=== PATIENT | female | born 1945 ===

== ENCOUNTER 2020-11-07 11:41 | Emergency (ER) | payer MEDICARE, SELFPAY | END 2020-11-07 15:24 | disposition left against medical advice (07) | PROVIDERS: Emergency Provider Emergency Medicine; PCP Internal Medicine | DX: R22.31 Localized swelling, mass and lump, right upper limb (principal) ==

== ENCOUNTER 2020-12-30 10:27 | Outpatient (REF) | payer MEDICARE, SELFPAY ==
--- NOTE | ~2020-12-30 | MM_ITS ---
EXAMINATION: MM SCREENING DIGITAL BREAST TOMOSYNTHESIS, BILATERAL CLINICAL INFORMATION: Screening. Asymptomatic. The lifetime risk of breast cancer based on the Tyrer-Cuzick Model is 3%. COMPARISON: Mammography: 05/15/2019, 03/10/2018, 02/01/2017, 01/31/2016, 12/06/2014 TECHNIQUE: Digital breast tomosynthesis is performed in both the craniocaudal and mediolateral oblique views along with computer-aided detection (CAD). Synthesized 2D images are generated from the tomosynthesis. FINDINGS: There are scattered areas of fibroglandular density (ACR BI-RADS breast composition Category b). Parenchymal pattern is similar to prior studies. There are minor shifting fibroglandular densities from year to year based on positioning. There is no developing density or interval mass or architectural abnormality. There are no abnormal calcifications. Deodorant artifact is suggested high right axilla on MLO view. The axilla and skin contours are otherwise unremarkable. No significant changes. MM/MM tomosynthesis screening BI IMPRESSION: No mammographic evidence of malignancy. ASSESSMENT: BI-RADS 2: Benign RECOMMENDATION: Routine annual mammography screening. This patient's information was entered into a reminder system with a target due date for their next mammogram.
== END 2020-12-30 10:28 | disposition home or self-care (01) ==
LOC: HO.MAMMO 10:27
PROVIDERS: PCP Family Medicine; Visit Provider Family Medicine
DX: Z12.31 Encounter for screening mammogram for malignant neoplasm of breast (principal)
CPT/HCPCS: 77063; 77067

== ENCOUNTER 2021-03-14 10:49 | Outpatient (REF) | payer MEDICARE, MEDICAID, SELFPAY ==
[2021-03-14 12:48] LABS: MANUAL DIFF FLAG NO
[2021-03-14 13:10] LABS: Basophils Percent Auto 0.6 % (0-2); Eosinophils Absolute Auto 0.1 X10*3/uL (0.0-0.4); Eosinophils Percent Auto 1.3 % (0-4); Hematocrit 41.6 % (37.0-47.0); Imm Gran Abs Auto 0.01 X10*3/uL (0.00-0.03); Imm Gran Pct Auto 0.2 % (0.0-0.4); Lymphocytes Percent Auto 37.8 % (20-40); Mean Corpuscular HGB Conc 33.7 g/dl (31.0-35.0); Mean Corpuscular Hemoglobin 31.9 pg (27.0-33.0); Mean Corpuscular Volume 94.8 fL (80.0-98.0); Monocytes Absolute Auto 0.3 X10*3/uL (0.1-1.2); Monocytes Percent Auto 6.5 % (2-11); Neutrophils Absolute Auto 2.8 x10*3/uL (2.0-8.3); Neutrophils Percent Auto 53.6 % (45-73); Platelet Count 228 X10*3/uL (160-400); Red Blood Count 4.39 X10*6/uL (4.20-5.50); Red Cell Distribution Width 13.7 % (11.0-16.0); White Blood Count 5.2 X10*3/uL (4.8-10.8)
[2021-03-14 13:32] LABS: Alanine Aminotransferase 11 U/L (0-31); Albumin Level 4.4 g/dL (3.5-5.0); Alkaline Phosphatase 66 U/L (39-117); Anion Gap 12 (12-20); Aspartate Amino Transferase 20 U/L (5-31); Bilirubin Total 0.4 mg/dL (0.0-1.0); Blood Urea Nitrogen 14 mg/dL (9-16); Calcium 9.8 mg/dL (8.4-10.2); Carbon Dioxide 26 mmol/L (22-29); Chloride 106 mmol/L (96-108); Estimated Glomerular Filt Rate 59; Glucose Random 93 mg/dL (60-115); Potassium 4.3 mmol/L (3.3-5.1); Sodium 140 mmol/L (135-145); Total Protein 8.1 g/dL (6.5-8.0)
== END 2021-03-14 10:50 | disposition home or self-care (01) ==
LOC: HO.LAB 10:49
PROVIDERS: PCP Family Medicine; Referring Provider Family Medicine; Visit Provider Nurse Practitioner
DX: Z01.818 Encounter for other preprocedural examination (principal); I10 Essential (primary) hypertension
CPT/HCPCS: 36415; 80053; 85025; 99202

== ENCOUNTER 2021-04-07 10:46 | Outpatient (REF) | payer MEDICARE, MEDICAID, SELFPAY ==
[2021-04-07 12:06] LABS: COVID-19 Test Negative (Negative); IDNOW Serial# 16C4AD1C
== END 2021-04-07 10:47 | disposition home or self-care (01) ==
LOC: HO.LAB 10:46
PROVIDERS: Visit Provider Internal Medicine
DX: Z20.822 Contact with and (suspected) exposure to COVID-19 (principal)
CPT/HCPCS: 36415; 87635; C9803

== ENCOUNTER 2021-04-28 08:19 | Day surgery (SDC) | payer MEDICARE, MEDICAID, SELFPAY ==
--- NOTE | 2021-04-27 15:36 | HO.ANESPROP2 ---
Documented by User: Delilah Romo NP 04/27/21 15:36 HPI - Anesthesia Eval Consult details Narrative: 76yo F for Colonoscopy [facility] Active Problems Active Problems: All Active Problems (Updated 04/19/21 @ 11:24 by Stella Garcia RN) Colon cancer screening (Acute) HTN (hypertension), benign (Acute) Past Medical History Medical History (Updated 04/19/21 @ 11:24 by Stella Garcia RN) Depression Elevated cholesterol HTN (hypertension) Surgical History Surgical History (Updated 04/19/21 @ 11:23 by Stella Garcia RN) History of colonoscopy with polypectomy Social History Social History Patient Tobacco Use Status: Never used Tobacco Use of substances other than those prescribed or required for medical reasons: No Have you been hit, kicked, punched, or otherwise hurt by someone within the past year? If so, by whom?: No Are you DNR?: No Advance Directives: No Advance Directives Information Provided: No Advance Directives on File: No Meds Allergies Allergy/AdvReac Type Severity Reaction Status Date / Time No Known Allergies Allergy Verified 03/14/21 11:42 Home Medications Medication Instructions Recorded Confirmed Last Taken Type atenolol 100 mg tablet 100 mg PO DAILY 03/14/21 Unknown History cholecalciferol (vitamin D3) 25 25 mcg PO DAILY 03/14/21 Unknown History mcg (1,000 unit) capsule (Vitamin D3) clindamycin HCl 300 mg capsule 300 mg PO Q8H 03/14/21 Unknown History loratadine 10 mg tablet 10 mg PO DAILY 03/14/21 Unknown History omega 3-ecg-vyo-fish oil 300 1 cap PO DAILY 03/14/21 Unknown History mg-1,000 mg capsule (Fish Oil) Exam Exam Date and Time: April 27, 2021 1536 Height,Weight and Vital Signs: Height 5 ft 3 in Assessment and Plan Assessment Anesthesia Assessment: Chart Reviewed Documented by User: Juan Michelle MD 04/28/21 09:45 [facility] Past Medical History Medical History (Updated 04/19/21 @ 11:24 by Stella Garcia RN) Depression Elevated cholesterol HTN (hypertension) Family History Family history of problems with anesthesia: No Surgical History Surgical History (Updated 04/19/21 @ 11:23 by Stella Garcia RN) History of colonoscopy with polypectomy History of Problems with Anesthesia: No Social History Social History Patient Tobacco Use Status: Never used Tobacco Use of substances other than those prescribed or required for medical reasons: No Have you been hit, kicked, punched, or otherwise hurt by someone within the past year? If so, by whom?: No Are you DNR?: No Advance Directives: No Advance Directives Information Provided: No Advance Directives on File: No Meds Allergies Allergy/AdvReac Type Severity Reaction Status Date / Time No Known Allergies Allergy Verified 03/14/21 11:42 Home Medications Medication Instructions Recorded Confirmed Last Taken Type atenolol 100 mg tablet 100 mg PO DAILY 03/14/21 Unknown History cholecalciferol (vitamin D3) 25 25 mcg PO DAILY 03/14/21 Unknown History mcg (1,000 unit) capsule (Vitamin D3) clindamycin HCl 300 mg capsule 300 mg PO Q8H 03/14/21 Unknown History loratadine 10 mg tablet 10 mg PO DAILY 03/14/21 Unknown History omega 5-gwz-dna-fish oil 300 1 cap PO DAILY 03/14/21 Unknown History mg-1,000 mg capsule (Fish Oil) Exam Airway Mallampati Class: II TM Dist: >3cm Neck ROM: Full Loose/Missing/Broken Teeth: Yes (all implants as per patient) Heart: [id number] Lungs: cta b/l Assessment and Plan Assessment Anesthesia Assessment: Anesthesia Plan Discussed Final Anesthetic Review Family History of Problems with Anesthesia: No History of Problems with Anesthesia: No NPO: Yes ASA Class: II Final Preanesthetic Review: No Changes in Pt Med Stat, Meds/Allgs Chart Reviewed, Consent Obtained/Reviewed and Anes Risks/Benef Reviewed Patient Risk: Intermediate Procedure Risk: Low Assessment/Block/Sedation in SS: Assess/Block/Sedation-SS Anesthetic Plan Anesthetic Plan: MAC: and Agree w/ Assess. and Plan Disposition: Standard PACU
[2021-04-28 09:06] VITALS: BP 187/80; PULSE 61; RESP 16; TEMP 36.5; O2SAT 96
[2021-04-28 09:07] VITALS: BMI 23.9
[2021-04-28] MEDS: Lactated Ringers 1,000 ML 100 ML IVCONT (09:26)
--- NOTE | 2021-04-28 09:29 | MHC.SHP ---
Pre-Procedural Eval Section A Date of Service: 04/28/21 The patient is an INPATIENT: No The History & Physical has been completed within 30 days and I have reviewed it.: No Section B Chief Complaint: Screening Details of Present Illness: colon cancer screening Relevant Family History (Specify if Yes): Yes Relevant Social History: None Present Medications: see Short Stay Collaborative assessment Medical History: Significant History ( hypertension, elevated cholesterol, depression) History of Previous Operations: Relevant previous surgery/procedure and date(s) (History of colonoscopy with polypectomy) Allergies: Allergies Allergy/AdvReac Type Severity Reaction Status Date / Time No Known Allergies Allergy Verified 03/14/21 11:42 Review of Systems Sugical H&P ROS: Negative: Constitution, Cardiovascular, Respiratory and Gastrointestinal Exam Surgical H&P Exam: Normal: Heart, Normal: Lungs, Normal: Extremities and Normal: Abdomen Plan Diagnosis/Plan: Unchanged I have reviewed the history and physical and performed a pertinent physical examination on my patient. No changes have occurred unless specified.
--- NOTE | 2021-04-28 09:38 | W.PM.OPN ---
Operative Note Operative Note Date of Service: 04/28/21 Narrative: Pre-op diagnosis:??colon cancer screening Post-op diagnosis:?other (Colon polyps, diverticulosis, hemorrhoids) Procedure:? COLONOSCOPY TILL CECUM WITH BIOPSIES Consent: Indications for the procedure and potential complications of bleeding, perforation, reaction to medications and missed diagnosis were discussed with the patient and informed consent was obtained. Instrument: Olympus PCF H 190 L variable stiffness pediatric colonoscope Monitoring: Vital signs and clinical assessment, intermittent blood pressure monitoring, continuous EKG monitoring, Pulse oximetry and Carbon Dioxide monitoring were done throughout the procedure. Colon withdrawl time was 13 minutes. Procedure: The patient was placed in the left lateral decubitis position and pre-procedure medications were administered. After a digital rectal examination of the ano-rectum, the video colonoscope was inserted into the rectum and advanced through the colon to the cecum. The colonoscope was slowly withdrawn in a retrograde panoramic fashion and the colon mucosa was carefully examined including a retroflexed view of the rectum. Findings and interventions are described below. Procedure Difficulty: Without difficulty Findings: Terminal Ileum: Not evaluated Cecum:? Two 5-7 mm sessile polyps removed with a cold bx Ascending Colon:? Normal Transverse Colon:? Normal Descending Colon:? Moderate diverticulosis Sigmoid Colon:? Moderate diverticulosis Rectum:? Normal Ano-rectum:? Moderate internal hemorrhoids and perianal skin tags Colon preparation: Excellent ? Impression and Post Procedure Diagnosis: Colonoscopy Findings: Two small polyps removed Moderate diverticulosis seen in the left colon Moderate hemorrhoids on retroflexed exam. Plan: Await pathology results Patient has an appointment on 05/19/20 in the [facility] with? Pia Lindquist NP . Repeat Colonoscopy interval based on path results - in 5 years if polyps are adenomatous and can discontinue colon cancer screening if polyps are hyperplastic. Above findings were reviewed with the patient and colon polyps and diverticulosis handouts were given in the discharge area Surgeon:?Cornelia Delarosa MD Anesthesia:?MAC (Minna Malone CRNA) Was an Channel Worker used for this Procedure?:?Yes Channel Worker:?Tessy Becker Estimated blood loss (mL):?0 Pathology:?other (A- Cecal polyps) Condition:?stable Disposition:?PACU
[2021-04-28 10:52] VITALS: BP 126/63; PULSE 74; RESP 18; TEMP 36.4; O2SAT 100
[2021-04-28 11:04] VITALS: BP 131/72; PULSE 68; RESP 18; TEMP 37.2; O2SAT 97
== END 2021-04-28 12:26 | disposition home or self-care (01) ==
PROVIDERS: PCP Family Medicine; Visit Provider Internal Medicine Gastroenterology
PROC: 0DJD8ZZ Inspection of Lower Intestinal Tract, Via Natural or Artificial Opening Endoscopic (ICD-10-PCS; CPT 45378; principal; 2021-04-28 10:10)
DX: Z12.11 Encounter for screening for malignant neoplasm of colon (principal); K57.30 Diverticulosis of large intestine without perforation or abscess without bleeding; K64.8 Other hemorrhoids; K64.4 Residual hemorrhoidal skin tags; I10 Essential (primary) hypertension; E78.00 Pure hypercholesterolemia, unspecified; J30.9 Allergic rhinitis, unspecified; Z79.899 Other long term (current) drug therapy
CPT/HCPCS: 45380; 88305

== ENCOUNTER → 2021-05-19 08:45 | Outpatient (BNVA) | payer MEDICARE, MEDICAID, SELFPAY | PROVIDERS: PCP Family Medicine; Referring Provider Family Medicine; Visit Provider Nurse Practitioner | DX: D12.6 Benign neoplasm of colon, unspecified (principal); Z98.890 Other specified postprocedural states | CPT/HCPCS: 99212 ==

== ENCOUNTER 2021-09-05 09:28 | Outpatient (REF) | payer MEDICARE, MEDICAID, SELFPAY ==
--- NOTE | ~2021-09-05 | XR_ITS ---
EXAMINATION: XR SHOULDER, RIGHT CLINICAL INFORMATION: Pain COMPARISON: None TECHNIQUE: AP external rotation, Grashey, scapular Y, and axillary views of the right shoulder. FINDINGS: Bone alignment is normal. No fracture or dislocation is seen. The glenohumeral joint is normal. There is arthritis at the acromioclavicular joint. Soft tissues are normal. XR/XR shoulder RT min 2V IMPRESSION: Arthritis at the acromioclavicular joint.
--- NOTE | ~2021-09-05 | MM_ITS ---
EXAMINATION: BONE DENSITOMETRY CLINICAL INDICATION: Menopause. COMPARISON: Previous BD dated 04/28/2015 and baseline BD dated 02/27/2008. TECHNIQUE: Using a Perosphere DXA System (software version: 13.1) manufactured by [employer], dual-energy x-ray absorptiometry was performed of the lumbar spine and left hip. The images are of good technical quality. Summary results are attached. FINDINGS: AP SPINE L1-L4: Current: BMD 0.849 g/cm2, Z-score -0.8, T-score -2.8, osteoporosis, 3.7% decrease from previous, 2.1% decrease from baseline (<5% change is not significant). Prior: BMD 0.882 g/cm2. Baseline: BMD 0.867 g/cm2. LEFT FEMUR, NECK: Current: BMD 0.687 g/cm2, Z-score -0.4, T-score -2.5, osteoporosis. Prior: BMD 0.686 g/cm2. Baseline: BMD 0.679 g/cm2. LEFT FEMUR, TOTAL: Current: BMD 0.829 g/cm2, Z-score 0.6, T-score -1.4, osteopenia, 3.1% increase from previous, 4.4% decrease from baseline (<5% change is not significant). Prior: BMD 0.804 g/cm2. Baseline: BMD 0.867 g/cm2. IDENTIFIED RISK FACTORS: Menopause. HISTORY OF FRACTURE: None listed. MEDICATIONS: Calcium supplements or multivitamin, vitamin D. MM/XR DEXA axial skeleton IMPRESSION: 1. DIAGNOSIS: Osteoporosis based on the lowest T-score value of -2.8 in the lumbar spine applying World Health Organization criteria. 2. 10-YEAR FRACTURE RISK PREDICTION, FRAX: According to the guidelines, FRAX calculation should only be performed on patients in the osteopenia bone density category. Therefore, FRAX was not performed on this patient. 3. Treatment Recommendations: NOF guidelines recommend consideration for treatment in postmenopausal women and men age 50 and older presenting with the following: -A hip or vertebral (clinical or morphometric) fracture. -T-score less than or equal to -2.5 at the femoral neck or spine after appropriate evaluation to exclude secondary causes. -Low bone mass at the hip or spine and a 10-year fracture probability by FRAX of greater than or equal to 3% for hip fracture or greater than or equal to 20% for major osteoporotic fracture based on the [place] adapted WHO algorithm. 4. Other Recommendations: All treatment decisions require clinical judgment and consideration of individual patient factors, including patient preferences, comorbidities, previous drug use, risk factors not captured in the FRAX model (e.g. frailty, falls, vitamin D deficiency, increased bone turnover, interval significant decline in bone density) and possible under or overestimation of fracture risk by FRAX. Additional medical evaluation for secondary cause of low bone mineral density may be appropriate. FUTURE SCAN RECOMMENDATION: People with diagnosed cases of osteoporosis or at high risk for fracture should have regular bone mineral density tests. For patients eligible for Medicare, routine testing is allowed once every 2 years. The testing frequency can be increased to one year for patients who have rapidly progressing disease, those who are receiving or discontinuing medical therapy to restore bone mass, or have additional risk factors.
== END 2021-09-05 09:29 | disposition home or self-care (01) ==
LOC: HO.MAMMO 09:28
PROVIDERS: PCP Family Medicine; Visit Provider Family Medicine
DX: Z13.820 Encounter for screening for osteoporosis (principal); M25.511 Pain in right shoulder; Z78.0 Asymptomatic menopausal state; M81.0 Age-related osteoporosis without current pathological fracture
CPT/HCPCS: 73030; 77080

== ENCOUNTER 2022-08-29 08:23 | Inpatient (IN) | payer OTHER, SELFPAY ==
[2022-08-29] VITALS (8 sets, daily range): BP systolic 140–212; BP diastolic 55–143; PULSE 63–80; RESP 15–23; TEMP 36.6–37.2; O2SAT 92–99; BMI 25.3; BMI 25.2
--- NOTE | ~2022-08-29 | CT_ITS ---
EXAMINATION: CT ABDOMEN AND PELVIS WITH CONTRAST CLINICAL INFORMATION: Right upper quadrant pain with elevated lyric, alk phos, lipase r/o lyric obstruction, COMPARISON: None available. TECHNIQUE: Multidetector volumetric images were obtained from the superior aspect of the liver through the pubic symphysis following administration 85 mL of Omnipaque 350 intravenous contrast. Sagittal and coronal reformatted images were obtained on the technologist's workstation. Oral contrast: No This CT examination was performed using dose optimization techniques as appropriate, variously including the following: *Automated exposure control *Adjustment of mA and/or kV according to patient size (this includes techniques or standardized protocols for targeted exams where dose is matched to indication/reason for exam; i.e. extremities or head) *Use of iterative reconstruction technique DLP: 678 mGy-cm FINDINGS: LUNG BASES: The visualized lung bases are unremarkable. LIVER, GALLBLADDER, AND BILIARY TREE: The liver is normal in size, shape, and attenuation. No focal hepatic lesion or biliary ductal dilatation is present. The gallbladder is hydropic, markedly distended with dependent layering calcified gallstones the largest measuring 2.3 cm. PANCREAS: Unremarkable. SPLEEN: Unremarkable. ADRENAL GLANDS: Mild thickening of the left adrenal gland. The right adrenal gland appears normal. KIDNEYS AND URETERS: The kidneys are normal in size, shape, and attenuation. Bilateral benign Bosniak class I renal cysts are present No hydronephrosis, hydroureter, or calculi seen. No perinephric stranding. BLADDER: Unremarkable. GASTROINTESTINAL TRACT: Extensive colonic diverticular changes are seen predominantly in the left colon. There is one area in the mid descending colon where there is thickening of the anterior pararenal fascia and lateral conal fascia. There is some inflammatory change seen beneath the third portion of the duodenum in the anterior fascia as well. No discrete fluid collection is seen. Differential diagnosis for these findings would include diverticulitis as well as pancreatitis as the pancreatic tail is adjacent to this as well. The small bowel and right-sided large bowel are unremarkable. The appendix is unremarkable. ABDOMINAL WALL: No significant hernia is appreciated. LYMPH NODES: No retroperitoneal lymphadenopathy. VASCULAR: Unremarkable. PELVIC VISCERA: The uterus and adnexa are unremarkable aside from the presence of a calcified fibroid on the right. OSSEOUS STRUCTURES: Degenerative changes are present predominantly at L4-L5 and L5-S1. CT/CT abdomen pelvis w IV con IMPRESSION: 1. Extensive colonic diverticular changes with one area in the mid descending colon with some adjacent inflammatory change in the anterior pararenal fascia and lateral conal fascia. Differential diagnosis would include diverticulitis as well as pancreatitis as the pancreatic tail is adjacent to this as well. Please correlate with clinical history and laboratory values. 2. Hydropic gallbladder with cholelithiasis. No definite evidence of cholecystitis. 3. Other incidental findings as described above. Fleischner guidelines were followed.
--- NOTE | 2022-08-29 09:01 | ECG_ITS ---
Test Reason : ABDOMINAL PAIN Blood Pressure : / mmHG Vent. Rate : 067 BPM Atrial Rate : 067 BPM P-R Int : 160 ms QRS Dur : 072 ms QT Int : 410 ms P-R-T Axes : 058 018 034 degrees QTc Int : 433 ms Normal sinus rhythm Normal ECG No previous ECGs available Referred By: Lala Becerril Electronically Signed By:JORGE ALBERTO WARD
[2022-08-29 09:14] LABS: MANUAL DIFF FLAG NO
[2022-08-29 09:16] LABS: Basophils Percent Auto 0.2 % (0-2); Eosinophils Absolute Auto 0.1 X10*3/uL (0.0-0.4); Eosinophils Percent Auto 0.5 % (0-4); Hematocrit 39.3 % (37.0-47.0); Hemoglobin 13.1 g/dl (12.0-16.0); Imm Gran Abs Auto 0.04 X10*3/uL (0.00-0.03); Imm Gran Pct Auto 0.4 % (0.0-0.4); Lymphocytes Absolute Auto 1.2 X10*3/uL (1.2-4.9); Lymphocytes Percent Auto 11.8 % (20-40); Mean Corpuscular HGB Conc 33.3 g/dl (31.0-35.0); Mean Corpuscular Hemoglobin 31.6 pg (27.0-33.0); Mean Corpuscular Volume 94.7 fL (80.0-98.0); Mean Platelet Volume 10.6 fL (9.4-12.3); Monocytes Absolute Auto 0.3 X10*3/uL (0.1-1.2); Monocytes Percent Auto 2.9 % (2-11); Neutrophils Absolute Auto 8.8 x10*3/uL (2.0-8.3); Neutrophils Percent Auto 84.2 % (45-73); Platelet Count 249 X10*3/uL (160-400); Red Blood Count 4.15 X10*6/uL (4.20-5.50); Red Cell Distribution Width 14.4 % (11.0-16.0); White Blood Count 10.4 X10*3/uL (4.8-10.8)
[2022-08-29 09:21] LABS: Appearance Urine Clear; Color Urine Yellow; Glucose Urine UA Negative (Negative); Leukocyte Esterase Urine Negative (Negative); Nitrite Urine Negative (Negative); Specific Gravity - Urine <= 1.005 (1.005-1.025); Urine Blood Negative (Negative); Urine Ketones Negative (Negative); Urine Protein Negative (Neg-Trace)
[2022-08-29 09:25] LABS: INTERNATIONAL NORM RATIO 0.9 (0.9-1.1)
[2022-08-29 09:27] LABS: Partial Thromboplastin Time 29.6 SEC (26.0-36.4)
[2022-08-29 09:31] LABS: Alanine Aminotransferase 179 U/L (0-31); Albumin Level 4.4 g/dL (3.5-5.0); Alkaline Phosphatase 316 U/L (39-117); Anion Gap 11 (12-20); Aspartate Amino Transferase 235 U/L (5-31); Bilirubin Total 2.9 mg/dL (0.0-1.0); Blood Urea Nitrogen 17 mg/dL (9-16); Calcium 10.1 mg/dL (8.4-10.2); Carbon Dioxide 28 mmol/L (22-29); Chloride 106 mmol/L (96-108); Creatinine Clr Calc Pharmacy 41.2; Estimated Glomerular Filt Rate 58; Glucose Random 108 mg/dL (60-115); Magnesium 1.9 mg/dL (1.6-2.6); Sodium 140 mmol/L (135-145); Total Protein 8.2 g/dL (6.5-8.0)
[2022-08-29 09:52] LABS: Troponin-I High Sensitivity < 2.7 ng/L (<3.5-17.0)
--- NOTE | 2022-08-29 10:03 | ED.ABDPAIN ---
HPI - Abdominal Pain General Chief Complaint: Abdominal Pain Stated Complaint: Stomach Pain Time Seen by Provider: 08/29/22 09:39 Source: patient Mode of arrival: ambulatory Limitations: no limitations History of Present Illness HPI narrative: 77-year-old female who presents emergency department for evaluation of abdominal pain x1 week. The patient states that the pain is bed constant but waxing and waning intensity. The pain is gotten worse over the past 2 days the point where she cannot eat secondary to her pain. She points to her right upper quadrant when asked to localize the pain. The pain is a sharp pain which does radiate to her back. Patient denied nausea vomiting or diarrhea but states she has lost her appetite and food does make the pain worse. She denied fever or chills. She denied frequency, urgency or dysuria. Past medical history significant for 36 years ago but no other surgeries. She does have a history of hypertension and she states that her doctor increased her medications approximately 1 month prior. Related Data Home Medications Medication Instructions Recorded Confirmed atenolol 100 mg tablet 100 mg PO DAILY 03/14/21 cholecalciferol (vitamin D3) 25 25 mcg PO DAILY 03/14/21 mcg (1,000 unit) capsule (Vitamin D3) clindamycin HCl 300 mg capsule 300 mg PO Q8H 03/14/21 loratadine 10 mg tablet 10 mg PO DAILY 03/14/21 omega 3-qhp-htn-fish oil 300 1 cap PO DAILY 03/14/21 mg-1,000 mg capsule (Fish Oil) Allergies Allergy/AdvReac Type Severity Reaction Status Date / Time No Known Allergies Allergy Verified 08/29/22 08:52 Review of Systems Review of Systems Yes all other systems are reviewed and are negative [facility] Past Medical History [facility] Narrative: Social history: She denies tobacco, alcohol and drug use. Medical History Depression Elevated cholesterol HTN (hypertension) Surgical History History of colonoscopy with polypectomy Social History Social History Patient Tobacco Use Status: Never used Tobacco Smoked in Last 30 Days: No Use of substances other than those prescribed or required for medical reasons: No Advance Directives: No Advance Directives Information Provided: Yes Physical Exam ED Vital Signs: Vital Signs - 24 hr 08/29/22 08:44 08/29/22 10:12 08/29/22 12:53 Temperature 97.8 F 98.5 F Pulse Rate 80 69 67 Respiratory Rate 16 15 17 Blood Pressure 212/143 H 151/76 H 140/73 H Pulse Oximetry 97 96 99 Oxygen Delivery Method Room Air Room Air Room Air 08/29/22 13:21 08/29/22 15:15 Temperature Pulse Rate 73 Respiratory Rate 23 H 18 Blood Pressure 174/74 H 175/86 H Pulse Oximetry 95 95 Oxygen Delivery Method Room Air Room Air BMI result Body Mass Index 25.3 Const Other: Awake, alert, female patient, very pleasant cooperative in no distress, answers all questions appropriately HENMN Head: Yes normal to inspection, Yes normocephalic and Yes atraumatic Ears: external ears normal General nose exam: Normal external nose present Face and sinus: Yes normal facial exam Mouth: Normal oral and palatal mucosa present Throat: Yes posterior oropharynx normal Eyes General: appearance normal, both eyes and all related structures Pupils: Equal, round and reactive pupils present Neck Neck: Yes normal visual inspection, Yes no lymphadenopathy, Yes trachea midline and Yes supple Chest Chest palpation & inspection: normal inspection of the chest and normal palpation of entire chest wall Resp Effort & Inspection: normal respiratory effort and able to speak in complete sentences Auscultation: clear to auscultation bilaterally Cardio Rate: regular rate Rhythm: regular rhythm Heart sounds: S1 normal heart sound present, S2 normal heart sound present and no murmurs GI Inspection: Yes normal to inspection Palpation (GI): Soft to palpation, Tenderness to palpation present (GI) in the epigastrum (Mild) and in the RUQ (Moderate) and no guarding Auscultation: normal bowel sounds General: Yes no CVA tenderness Back/Spine/Pelvis Back: no CVA tenderness Skin General skin exam: no rashes or lesions noted Neuro Cranial nerves: Yes CN's II-XII intact bilaterally and Yes Equal, round and reactive pupils present Cognition (Neuro): normal cognition Motor exam (neuro): 5/5 motor strength present throughout Extrem General: Yes normal to inspection Psych Appearance: grossly normal Speech and movement: Normal speech and movement present Affect: normal affect Attitude: cooperative Thought process: Normal thought process present Thought content: Normal thought content present Medical Decision Making Medical Decision Making [facility] Narrative: 77-year-old female with history of hypertension, depression, who presents emergency department for evaluation of 1 week of constant right upper quadrant pain which radiates to her back. Patient's vital signs did reveal an elevated blood pressure of 212/143 otherwise were unremarkable. Patient's physical examination did reveal right upper quadrant tenderness and epigastric tenderness. I ordered a CBC, CMP, magnesium, troponin, PT/INR, PTT, lipase, total and direct bilirubin. CT scan of the abdomen pelvis with IV contrast will also be obtained. I ordered normal saline x1 L, Zofran 4 mg IV for her nausea and Toradol 15 mg IV for her pain. 1015: My interpretation patient's laboratory evaluation is as follows: CBC was normal. BUN elevated 75. AST and ALT were elevated 235 and 179. Alk-phos was elevated 316. Total bilirubin elevated 2.9. Troponin was below detectable limits. Urinalysis was negative. Patient's elevated LFTs are concerning for biliary obstructive process. 1736: CT scan of the patient's abdomen pelvis with IV contrast did reveal distended the largest markedly distended with dependent layering calcified gallstones the largest measuring 2.3 cm inflammatory changes around the pancreatic tail consistent with pancreatitis. I did discuss over tiger text the patient's presentation findings with the covering general surgeon, Dr. Robledo 1804: Patient was accepted by the hospitalist, Dr. Lynn Differential Diagnosis Differential diagnosis includes but is not limited to gastritis, GERD, cholecystitis, choledocholithiasis, viral syndrome Admission/Observation Consideration of admission/observation: Escalation of care including admission/observation considered Consult Healthcare Provider Management of the patient was discussed with: Hospitalist and Allergy And Immunology Specialist (Dr. Robledo) Lab Data [facility] Lab Attestation statement: I reviewed the patient's lab results. 08/29/22 09:07 08/29/22 09:07 Labs: Lab Results 08/29/22 08/29/22 08/29/22 Range/Units 09:07 09:07 09:07 WBC 10.4 (4.8-10.8) X10*3/uL RBC 4.15 L (4.20-5.50) X10*6/uL Hgb 13.1 (12.0-16.0) g/dl Hct 39.3 (37.0-47.0) % MCV 94.7 (80.0-98.0) fL MCH 31.6 (27.0-33.0) pg MCHC 33.3 (31.0-35.0) g/dl RDW 14.4 (11.0-16.0) % Plt Count 249 (160-400) X10*3/uL MPV 10.6 (9.4-12.3) fL Immature Gran % (Auto) 0.4 (0.0-0.4) % Neut % (Auto) 84.2 H (45-73) % Lymph % (Auto) 11.8 L (20-40) % [place] % (Auto) 2.9 (2-11) % Eos % (Auto) 0.5 (0-4) % Baso % (Auto) 0.2 (0-2) % Lymph # (Auto) 1.2 (1.2-4.9) X10*3/uL [place] # (Auto) 0.3 (0.1-1.2) X10*3/uL Eos # (Auto) 0.1 (0.0-0.4) X10*3/uL Baso # (Auto) 0.0 (0.0-0.2) X10*3/uL Abs Immat Gran (auto) 0.04 H (0.00-0.03) X10*3/uL Absolute Neuts (auto) 8.8 H (2.0-8.3) x10*3/uL Absolute Nucleated RBC 0.000 (0.0-0.012) X10*3/uL Nucleated RBC % (auto) 0.0 (0.0-0.2) /100WBC PT 10.0 (10.0-13.1) SEC INR 0.9 (0.9-1.1) APTT 29.6 (26.0-36.4) SEC Sodium 140 (135-145) mmol/L Potassium 5.0 (3.3-5.1) mmol/L Chloride 106 (96-108) mmol/L Carbon Dioxide 28 (22-29) mmol/L Anion Gap 11 L (12-20) BUN 17 H (9-16) mg/dL Creatinine 0.94 (0.5-1.4) mg/dL Estim Creat Clear Calc 41.2 Estimated GFR 58 Random Glucose 108 (60-115) mg/dL Calcium 10.1 (8.4-10.2) mg/dL Magnesium 1.9 (1.6-2.6) mg/dL Total Bilirubin 2.9 H (0.0-1.0) mg/dL Direct Bilirubin 1.7 H (0.0-0.5) mg/dL AST 235 H (5-31) U/L ALT 179 H (0-31) U/L Alkaline Phosphatase 316 H (39-117) U/L Troponin I High Sens (<3.5-17.0) ng/L Total Protein 8.2 H (6.5-8.0) g/dL Albumin 4.4 (3.5-5.0) g/dL Lipase > 3000 H (8-78) U/L Urine Color Urine Appearance Urine pH (5.0-9.0) Ur Specific [place] (1.005-1.025) Urine Protein (Neg-Trace) mg/dL Urine Glucose (UA) (Negative) mg/dL Urine Ketones (Negative) mg/dL Urine Blood (Negative) Urine Nitrite (Negative) Ur Leukocyte Esterase (Negative) 08/29/22 08/29/22 Range/Units 09:07 09:07 WBC (4.8-10.8) X10*3/uL RBC (4.20-5.50) X10*6/uL Hgb (12.0-16.0) g/dl Hct (37.0-47.0) % MCV (80.0-98.0) fL MCH (27.0-33.0) pg MCHC (31.0-35.0) g/dl RDW (11.0-16.0) % Plt Count (160-400) X10*3/uL MPV (9.4-12.3) fL Immature Gran % (Auto) (0.0-0.4) % Neut % (Auto) (45-73) % Lymph % (Auto) (20-40) % [place] % (Auto) (2-11) % Eos % (Auto) (0-4) % Baso % (Auto) (0-2) % Lymph # (Auto) (1.2-4.9) X10*3/uL [place] # (Auto) (0.1-1.2) X10*3/uL Eos # (Auto) (0.0-0.4) X10*3/uL Baso # (Auto) (0.0-0.2) X10*3/uL Abs Immat Gran (auto) (0.00-0.03) X10*3/uL Absolute Neuts (auto) (2.0-8.3) x10*3/uL Absolute Nucleated RBC (0.0-0.012) X10*3/uL Nucleated RBC % (auto) (0.0-0.2) /100WBC PT (10.0-13.1) SEC INR (0.9-1.1) APTT (26.0-36.4) SEC Sodium (135-145) mmol/L Potassium (3.3-5.1) mmol/L Chloride (96-108) mmol/L Carbon Dioxide (22-29) mmol/L Anion Gap (12-20) BUN (9-16) mg/dL Creatinine (0.5-1.4) mg/dL Estim Creat Clear Calc Estimated GFR Random Glucose (60-115) mg/dL Calcium (8.4-10.2) mg/dL Magnesium (1.6-2.6) mg/dL Total Bilirubin (0.0-1.0) mg/dL Direct Bilirubin (0.0-0.5) mg/dL AST (5-31) U/L ALT (0-31) U/L Alkaline Phosphatase (39-117) U/L Troponin I High Sens < 2.7 (<3.5-17.0) ng/L Total Protein (6.5-8.0) g/dL Albumin (3.5-5.0) g/dL Lipase (8-78) U/L Urine Color Yellow Urine Appearance Clear Urine pH 7.0 (5.0-9.0) Ur Specific [place] <= 1.005 (1.005-1.025) Urine Protein Negative (Neg-Trace) mg/dL Urine Glucose (UA) Negative (Negative) mg/dL Urine Ketones Negative (Negative) mg/dL Urine Blood Negative (Negative) Urine Nitrite Negative (Negative) Ur Leukocyte Esterase Negative (Negative) Independent Interpretation I performed an independent interpretation of an: EKG Interpretation: Interpretation the patient's 12 EKG done at 0916 is as follows: Normal sinus rhythm with a rate of 67, normal MO interval, QRS duration QTC interval, Q-wave in lead 3, no ST segment elevation, no ST segment depression, flattened T-wave in V2, no PACs, no PVCs. Radiology Impression Discussion of test interpretation with radiology: I have reviewed the radiologist's reading. Radiologist Impression: EXAMINATION: CT ABDOMEN AND PELVIS WITH CONTRAST CLINICAL INFORMATION: Right upper quadrant pain with elevated lyric, alk phos, lipase r/o lyric obstruction, COMPARISON: None available. TECHNIQUE: Multidetector volumetric images were obtained from the superior aspect of the liver through the pubic symphysis following administration 85 mL of Omnipaque 350 intravenous contrast. Sagittal and coronal reformatted images were obtained on the technologist's workstation. Oral contrast: No This CT examination was performed using dose optimization techniques as appropriate, variously including the following: *Automated exposure control *Adjustment of mA and/or kV according to patient size (this includes techniques or standardized protocols for targeted exams where dose is matched to indication/reason for exam; i.e. extremities or head) *Use of iterative reconstruction technique DLP: 678 mGy-cm FINDINGS: LUNG BASES: The visualized lung bases are unremarkable. LIVER, GALLBLADDER, AND BILIARY TREE: The liver is normal in size, shape, and attenuation. No focal hepatic lesion or biliary ductal dilatation is present. The gallbladder is hydropic, markedly distended with dependent layering calcified gallstones the largest measuring 2.3 cm. PANCREAS: Unremarkable. SPLEEN: Unremarkable. ADRENAL GLANDS: Mild thickening of the left adrenal gland. The right adrenal gland appears normal. KIDNEYS AND URETERS: The kidneys are normal in size, shape, and attenuation. Bilateral benign Bosniak class I renal cysts are present No hydronephrosis, hydroureter, or calculi seen. No perinephric stranding. BLADDER: Unremarkable. GASTROINTESTINAL TRACT: Extensive colonic diverticular changes are seen predominantly in the left colon. There is one area in the mid descending colon where there is thickening of the anterior pararenal fascia and lateral conal fascia. There is some inflammatory change seen beneath the third portion of the duodenum in the anterior fascia as well. No discrete fluid collection is seen. Differential diagnosis for these findings would include diverticulitis as well as pancreatitis as the pancreatic tail is adjacent to this as well. The small bowel and right-sided large bowel are unremarkable. The appendix is unremarkable. ABDOMINAL WALL: No significant hernia is appreciated. LYMPH NODES: No retroperitoneal lymphadenopathy. VASCULAR: Unremarkable. PELVIC VISCERA: The uterus and adnexa are unremarkable aside from the presence of a calcified fibroid on the right. OSSEOUS STRUCTURES: Degenerative changes are present predominantly at L4-L5 and L5-S1. CT/CT abdomen pelvis w IV con IMPRESSION: 1. Extensive colonic diverticular changes with one area in the mid descending colon with some adjacent inflammatory change in the anterior pararenal fascia and lateral conal fascia. Differential diagnosis would include diverticulitis as well as pancreatitis as the pancreatic tail is adjacent to this as well. Please correlate with clinical history and laboratory values. 2. Hydropic gallbladder with cholelithiasis. No definite evidence of cholecystitis. 3. Other incidental findings as described above. Fleischner guidelines were followed. Dictated By:Scotty Padilla MD Independent Historian Clinical information obtained from an independent historian. History obtained from or confirmed by: Friend Medications Administered Discontinued Medications Generic Name Dose Route Start Last Admin Trade Name Freq PRN Reason Stop Dose Admin Lactated Ringer's 1,000 mls @ 999 mls/hr 08/29/22 14:30 08/29/22 16:30 Lr IV 08/29/22 15:30 Infused .Q1H1M RON Infusion Iohexol 100 ml 08/29/22 14:52 08/29/22 14:52 Iohexol 350 Mg/Ml 100 Ml Infus..Btl IV 08/29/22 14:53 85 ml ONCE ONE Administration Ketorolac Tromethamine 15 mg 08/29/22 15:05 08/29/22 15:12 Ketorolac Tromethamine 15 Mg/Ml Vial IVPUSH 08/29/22 15:06 15 mg ONCE STA Administration Discharge Plan Discharge Clinical Impression: Acute gallstone pancreatitis Patient Disposition: Admitted As Inpatient
[2022-08-29 10:47] LABS: Bilirubin Direct 1.7 mg/dL (0.0-0.5)
[2022-08-29 10:57] LABS: Lipase > 3000 U/L (8-78)
[2022-08-29] MEDS: iohexoL 350 MG/ML 100 ML INFUS..BTL IV (14:52)
[2022-08-29] MEDS: Ketorolac Tromethamine 15 MG/ML VIAL IVPUSH (15:12)
[2022-08-29] MEDS: Lactated Ringers 1,000 ML 999 ML IV (15:15)
--- NOTE | 2022-08-29 18:55 | PM.IMHP ---
History of Present Illness Date of Service: 08/29/22 Attending physician on admission: Dayday Navarrete Chief Complaint: abd pain 77-year-old female with history hypertension presents to the ED accompanied by her [id number] for evaluation of abdominal pain that has been ongoing for 2 weeks. She states that she has had pain across the upper abdomen radiating to the back bilaterally that has been intermittent and waxes and wanes in severity. Primarily brought on by eating but states also occurs spontaneously at night at times. She states she has been trying to push through the pain but it has become so severe that she has not been eating or drinking as much. Denies any associated nausea or vomiting. No fevers, chills, diarrhea, constipation, melena, hematochezia, urinary symptoms. On arrival, mildly hypertensive at 151/55. No leukocytosis. Renal function baseline, electrolyte levels normal. Total bilirubin 2.9, direct bilirubin 1.7, AST 235, ALT 179, alkaline phosphatase 316. Troponin below detectable limits. Lipase >3000. CT abdomen/pelvis showed extensive colonic diverticular changes with 1 area in the mid descending colon with some adjacent inflammatory change in the anterior parental fascia and lateral conal fascia with differential to include diverticulitis, pancreatitis of the pancreatic tail. There is also a hydropic gallbladder with cholelithiasis but no evidence of acute cholecystitis. Given clinical picture and lab findings, patient will be admitted for further management of gallstone pancreatitis. She does report some alcohol consumption several days a week. No cigarette smoking or illicit drug use. In the ED, has received IV LR, ketorolac. E.d. did discuss case with general surgery who does not recommend cholecystectomy at this time but will plan for MRCP in the morning and will follow along with patient while admitted. Review of Systems Review of Systems: General: No fevers, malaise, unintentional weight loss HEENT: No blurred vision, diplopia. No sore throat, nasal congestion, rhinorrhea, sinus pain, ear pain Cardiovascular: No chest pain, palpitations, or leg edema Respiratory: No shortness of breath, wheezing, cough GI: +abd pain, +anorexia. No nausea, vomiting, diarrhea, constipation, melena, hematochezia : No dysuria, hematuria, increased urinary frequency, decreased urinary output MSK: No myalgia, back pain Neuro: No headaches, weakness, paresthesias Skin: No rashes or lesions [facility] Medical History Depression Elevated cholesterol HTN (hypertension) Surgical History History of colonoscopy with polypectomy Social History Patient Tobacco Use Status: Never used Tobacco Smoked in Last 30 Days: No Use of substances other than those prescribed or required for medical reasons: No Advance Directives: No Advance Directives Information Provided: Yes Meds Allergies Allergy/AdvReac Type Severity Reaction Status Date / Time No Known Allergies Allergy Verified 08/29/22 08:52 Active Medications: Current Medications Pharmacy Consult (Consult Rx Perform Med Rec) 1 each MISCELLANE ONCE PRN PRN Reason: Consult order Home Medications Medication Instructions Recorded Confirmed Last Taken Type atenolol 100 mg tablet 100 mg PO DAILY 03/14/21 Unknown History cholecalciferol (vitamin D3) 25 25 mcg PO DAILY 03/14/21 Unknown History mcg (1,000 unit) capsule (Vitamin D3) clindamycin HCl 300 mg capsule 300 mg PO Q8H 03/14/21 Unknown History loratadine 10 mg tablet 10 mg PO DAILY 03/14/21 Unknown History omega 3-itk-jaf-fish oil 300 1 cap PO DAILY 03/14/21 Unknown History mg-1,000 mg capsule (Fish Oil) Physical Exam Vital Signs and Narrative: Vital Signs: Last Vital Signs Temp 98.9 F 08/29/22 18:47 Pulse 64 08/29/22 18:47 Resp 18 08/29/22 18:47 BP 151/55 H 08/29/22 18:47 Pulse Ox 95 08/29/22 18:47 O2 Del Method Room Air 08/29/22 15:15 BMI result Body Mass Index 25.3 Constitutional - Awake and Alert, No apparent distress Eyes - PERRLA, EOMI Cardiovascular - S1S2, RRR, No edema Respiratory - Normal lung expansion, Normal respiratory effort, No respiratory distress, CTA bilaterally Gastrointestinal - mild epigastric tenderness to palpation without guarding or rebound. ND; +BS Extremities - no calf tenderness bilaterally, no swelling Skin - Warm/Dry Neurological - Alert & oriented x3, CN II-XII in tact, 08/24 strength BUE and BLE Psychological - Appropriate affect Results Labs 08/29/22 09:07 08/29/22 09:07 Labs: Laboratory Results - last 24 hr 08/29/22 08/29/22 08/29/22 09:07 09:07 09:07 MCV 94.7 MCH 31.6 MCHC 33.3 RDW 14.4 Plt Count 249 MPV 10.6 Immature Gran % (Auto) 0.4 Neut % (Auto) 84.2 H Lymph % (Auto) 11.8 L [place] % (Auto) 2.9 Eos % (Auto) 0.5 Baso % (Auto) 0.2 Lymph # (Auto) 1.2 [place] # (Auto) 0.3 Eos # (Auto) 0.1 Baso # (Auto) 0.0 Abs Immat Gran (auto) 0.04 H Absolute Neuts (auto) 8.8 H Absolute Nucleated RBC 0.000 Nucleated RBC % (auto) 0.0 PT 10.0 INR 0.9 APTT 29.6 Anion Gap 11 L Estim Creat Clear Calc 41.2 Estimated GFR 58 Random Glucose 108 Calcium 10.1 Magnesium 1.9 Total Bilirubin 2.9 H Direct Bilirubin 1.7 H AST 235 H ALT 179 H Alkaline Phosphatase 316 H Troponin I High Sens Total Protein 8.2 H Albumin 4.4 Lipase > 3000 H Urine Color Urine Appearance Urine pH Ur Specific [place] Urine Protein Urine Glucose (UA) Urine Ketones Urine Blood Urine Nitrite Ur Leukocyte Esterase 08/29/22 08/29/22 09:07 09:07 MCV MCH MCHC RDW Plt Count MPV Immature Gran % (Auto) Neut % (Auto) Lymph % (Auto) [place] % (Auto) Eos % (Auto) Baso % (Auto) Lymph # (Auto) [place] # (Auto) Eos # (Auto) Baso # (Auto) Abs Immat Gran (auto) Absolute Neuts (auto) Absolute Nucleated RBC Nucleated RBC % (auto) PT INR APTT Anion Gap Estim Creat Clear Calc Estimated GFR Random Glucose Calcium Magnesium Total Bilirubin Direct Bilirubin AST ALT Alkaline Phosphatase Troponin I High Sens < 2.7 Total Protein Albumin Lipase Urine Color Yellow Urine Appearance Clear Urine pH 7.0 Ur Specific [place] <= 1.005 Urine Protein Negative Urine Glucose (UA) Negative Urine Ketones Negative Urine Blood Negative Urine Nitrite Negative Ur Leukocyte Esterase Negative Imaging Radiologist's Impressions: Impressions Abdomen/Pelvis CT 08/29/22 14:53 IMPRESSION: 1. Extensive colonic diverticular changes with one area in the mid descending colon with some adjacent inflammatory change in the anterior pararenal fascia and lateral conal fascia. Differential diagnosis would include diverticulitis as well as pancreatitis as the pancreatic tail is adjacent to this as well. Please correlate with clinical history and laboratory values. 2. Hydropic gallbladder with cholelithiasis. No definite evidence of cholecystitis. 3. Other incidental findings as described above. Fleischner guidelines were followed. Assessment and Plan (1) Acute gallstone pancreatitis: Status: Acute Plan 77-year-old female with history hypertension admitted for further management of gallstone pancreatitis. #Acute gallstone pancreatitis -total bilirubin 2.9, direct bilirubin 1.7, AST 235, ALT 179, alk-phos 316, lipase >3000 -Aggressive IV fluid resuscitation with LR -pain management using pain scale with IV morphine, oxycodone -keep NPO, advanced diet as tolerated -appreciate general surgery input -MRCP tomorrow -Follow CMP #HTN-reasonably controlled -continue losartan/hctz and atenolol DVT prophylaxis- heparin Full code Patient requires inpatient stay at least 2 midnights for management of acute gallstone pancreatitis requiring further evaluation with MRCP and possible ERCP, IV fluid resuscitation, diet advancement, and expert consultation Time Spent With Patient Time: Total time managing care of this patient today ____ minutes. Quality Stroke Does the patient have a stroke diagnosis?: No VTE Prior VTE?: No VTE Risk Level:: Medical - moderate - high VTE Device Contraindication: Treatment Not Indicated VTE Drug Contraindication: N/A - Med Ordered
--- NOTE | 2022-08-29 19:28 | PHA.MEDREC ---
Pharmacy Consult ? Medication Reconciliation Pharmacy has completed the medication reconciliation. SPOKE WITH PT AND DAUGHTER. SHE SAID MD INCREASED HER LOSARTAN COMBO BUT SHE IS FINISHING UP HER SUPPLE OF 50/12.5 MG. SHE ALSO SAID SHE HATES THE WAY LOSARTAN FEELS AND DOESNT REALLY WANT THE 100 MG
[2022-08-29] MEDS: Lactated Ringers 1,000 ML 150 ML IVCONT (19:36)
[2022-08-29] MEDS: Heparin Sodium,Porcine 5,000 UNIT/ML VIAL 5000 UNIT SUBCUT (19:39)
--- NOTE | 2022-08-29 19:42 | PC.NURSE ---
medicated per jun, notified Christina Wang
--- NOTE | 2022-08-30 02:09 | MHC.EVENTN ---
Pt came from the ED at 2045, alert and oriented, at first encounter, pt claimed her pain has subsided to 3/10 on the RUQ and tolerated, NPO except meds, ice chips and sips of clear, pt complied, safety measures instructed, encouraged use of callbell, VSS, slept after.
[2022-08-30] MEDS: Lactated Ringers 1,000 ML 150 ML IVCONT ×3 (02:59→16:36)
[2022-08-30 04:00] VITALS: BP 126/70; PULSE 72; RESP 16; TEMP 37.4; O2SAT 96
[2022-08-30] MEDS: Heparin Sodium,Porcine 5,000 UNIT/ML VIAL 5000 UNIT SUBCUT ×2 (06:11→19:03)
[2022-08-30 06:34] LABS: MANUAL DIFF FLAG NO
[2022-08-30 06:47] LABS: Basophils Percent Auto 0.2 % (0-2); Eosinophils Absolute Auto 0.1 X10*3/uL (0.0-0.4); Eosinophils Percent Auto 1.7 % (0-4); Hematocrit 31.7 % (37.0-47.0); Hemoglobin 10.8 g/dl (12.0-16.0); Imm Gran Abs Auto 0.02 X10*3/uL (0.00-0.03); Imm Gran Pct Auto 0.3 % (0.0-0.4); Lymphocytes Percent Auto 33.7 % (20-40); Mean Corpuscular HGB Conc 34.1 g/dl (31.0-35.0); Mean Corpuscular Hemoglobin 31.5 pg (27.0-33.0); Mean Corpuscular Volume 92.4 fL (80.0-98.0); Monocytes Absolute Auto 0.4 X10*3/uL (0.1-1.2); Monocytes Percent Auto 6.5 % (2-11); Neutrophils Absolute Auto 3.5 x10*3/uL (2.0-8.3); Neutrophils Percent Auto 57.6 % (45-73); Platelet Count 200 X10*3/uL (160-400); Red Blood Count 3.43 X10*6/uL (4.20-5.50); Red Cell Distribution Width 14.4 % (11.0-16.0)
[2022-08-30 07:19] LABS: Alanine Aminotransferase 95 U/L (0-31); Albumin Level 3.1 g/dL (3.5-5.0); Alkaline Phosphatase 200 U/L (39-117); Anion Gap 12 (12-20); Aspartate Amino Transferase 78 U/L (5-31); Bilirubin Total 1.4 mg/dL (0.0-1.0); Blood Urea Nitrogen 16 mg/dL (9-16); Calcium 8.8 mg/dL (8.4-10.2); Carbon Dioxide 24 mmol/L (22-29); Chloride 108 mmol/L (96-108); Creatinine Clr Calc Pharmacy 49.6; Estimated Glomerular Filt Rate > 60; Glucose Random 69 mg/dL (60-115); Lipase 627 U/L (8-78); Potassium 3.9 mmol/L (3.3-5.1); Sodium 140 mmol/L (135-145); Total Protein 5.8 g/dL (6.5-8.0)
[2022-08-30 07:50] VITALS: BP 139/70; PULSE 78; RESP 18; TEMP 36.6; O2SAT 96
--- NOTE | 2022-08-30 08:01 | P.CONGS_ITS ---
History of Present Illness Consult details Consult date: 08/30/22 Narrative: 77-year-old female patient presenting with complaints of abdominal pain mainly in the right upper quadrant radiating into the back progressive over the past 2 weeks. Pain seems to increase with the eating but was without nausea or vomiting. She denies a previous history of similar symptoms in the past. She d enied fever, chills, diarrhea, constipation, or other systemic symptoms. She presented to the emergency room last evening and was found to be tender in the right upper quadrant. Laboratories revealed markedly elevated LFTs as well as lipase level. CT abdomen and pelvis revealed a hydropic gallbladder with some gallstones. There were changes suggestive of either descending colon diverticulitis verses pancreatitis. Patient was admitted for management of apparent gallstone pancreatitis. Morning she feels much improved with no abdominal pain. She reports being hungry and denies any nausea or vomiting. Past surgical history is significant mainly for Caesarean section 38 years ago. Laboratories this morning revealed a LFTs and lipase have dramatically improved suggestive of a passed gallstone. Review of Systems Review of Systems: Yes all other systems are reviewed and are negative Gastrointestinal: Gastrointestinal: Reports as per HPI and Reports abdominal pain PMFSH Past Medical History Medical History Depression Elevated cholesterol HTN (hypertension) Surgical History Surgical History History of colonoscopy with polypectomy Social History Social History Housing: Condominium Patient Tobacco Use Status: Never used Tobacco Smoked in Last 30 Days: No Use of substances other than those prescribed or required for medical reasons: No Currently Displaying Signs/Symptoms of Drug Intoxication Withdrawal: No Have you been hit, kicked, punched, or otherwise hurt by someone within the past year? If so, by whom?: No Do you feel safe in your current relationship?: No Current Relationship Is there a partner from a previous relationship who is making you feel unsafe now?: No Are you made to feel afraid or neglected: No Advance Directives: No Advance Directives Information Provided: Yes Do you have thoughts of harming others: None Do you have a plan to hurt others: No Plan Recently lost weight without trying: No Eating poorly because of decreased appetite: No Nutrition Risks: No Nutritional Risk Patient : No : No Poor oral hygiene: No Meds Allergies Allergy/AdvReac Type Severity Reaction Status Date / Time No Known Allergies Allergy Verified 08/29/22 08:52 Active Medications: Current Medications Acetaminophen (Acetaminophen 325 Mg Tablet) 650 mg PO Q6H PRN PRN Reason: Pain, Mild (Pain Scale 1-3) Docusate Sodium (Docusate Sodium 100 Mg Capsule) 100 mg PO DAILY PRN PRN Reason: Constipation Heparin Sodium (Porcine) (Heparin Sodium,Porcine 5,000 Unit/Ml Vial) 5,000 unit SUBCUT Q12H COUNTS INCLUDE 234 BEDS AT THE [facility] Last Admin: 08/30/22 06:11 Dose: 5,000 unit Lactated Ringer's (Lr) 1,000 mls @ 150 mls/hr IVCONT .Q6H40M COUNTS INCLUDE 234 BEDS AT THE [facility] Last Admin: 08/30/22 02:59 Dose: 150 mls/hr Morphine Sulfate (Morphine Sulfate 4 Mg/Ml Cartridge) 2 mg IVPUSH Q4H PRN; Protocol PRN Reason: Pain, Severe (Pain Scale 7-10) Ondansetron HCl (Ondansetron Hcl 4 Mg/2 Ml Vial) 4 mg IVPUSH Q8H PRN PRN Reason: Nausea and Vomiting Oxycodone HCl (Oxycodone Hcl Immed Release 5 Mg Tablet) 5 mg PO Q6H PRN PRN Reason: Pain, Moderate(Pain Scale 4-6) Pharmacy Consult (Consult Rx Perform Med Rec) 1 each MISCELLANE ONCE PRN PRN Reason: Consult order Sodium Chloride (0.9 % Sodium Chloride Flush 3 Ml Syringe) 3 ml IVFLUSH QSHIFT COUNTS INCLUDE 234 BEDS AT THE [facility] Last Admin: 08/30/22 00:22 Dose: Not Given Home Medications Medication Instructions Recorded Confirmed Last Taken Type atenolol 100 mg tablet 100 mg PO DAILY 03/14/21 08/29/22 08/29/22 History cholecalciferol (vitamin D3) 25 25 mcg PO DAILY 03/14/21 08/29/22 08/29/22 History mcg (1,000 unit) capsule (Vitamin D3) loratadine 10 mg tablet 10 mg PO DAILY PRN Allergy Symptoms 03/14/21 08/29/22 Unknown History losartan 50 mg-hydrochlorothiazide 1 tab PO DAILY 08/29/22 08/29/22 08/29/22 History 12.5 mg tablet Physical Exam Vital Signs: Vital Signs: Last Vital Signs Temp 97.8 F 08/30/22 07:50 Pulse 78 08/30/22 07:50 Resp 18 08/30/22 07:50 BP 139/70 08/30/22 07:50 Pulse Ox 96 08/30/22 07:50 O2 Del Method Room Air 08/30/22 07:50 BMI result Body Mass Index 25.2 Const: General: cooperative and no acute distress Nutritional Appearance: well nourished Orientation/consciousness: patient oriented x3 Limitations: no limitations HEENT: Head: Yes normocephalic and Yes atraumatic Ears: hearing grossly normal bilaterally Resp: Effort & Inspection: normal respiratory effort, no audible wheezes, no cough and no respiratory distress Cardio: Jugular venous distension: no JVD GI: Inspection: Yes normal to inspection Palpation (GI): Soft to palpation, nontender, no guarding, not rigid and No hepatosplenomegaly present Percussion: Yes normal to percussion Auscultation: normal bowel sounds Rectal Exam - Female: deferred Skin: Other: Warm, dry, no rash, no jaundice Neuro: General: patient oriented x3 Extrem: General: Yes no clubbing, cyanosis or edema Results Labs 08/30/22 06:01 08/30/22 06:01 Labs: Abnormal lab results 08/29/22 08/29/22 08/30/22 Range/Units 09:07 09:07 06:01 RBC 4.15 L 3.43 L (4.20-5.50) X10*6/uL Hgb 10.8 L (12.0-16.0) g/dl Hct 31.7 L (37.0-47.0) % Neut % (Auto) 84.2 H (45-73) % Lymph % (Auto) 11.8 L (20-40) % Abs Immat Gran (auto) 0.04 H (0.00-0.03) X10*3/uL Absolute Neuts (auto) 8.8 H (2.0-8.3) x10*3/uL Anion Gap 11 L (12-20) BUN 17 H (9-16) mg/dL Total Bilirubin 2.9 H (0.0-1.0) mg/dL Direct Bilirubin 1.7 H (0.0-0.5) mg/dL AST 235 H (5-31) U/L ALT 179 H (0-31) U/L Alkaline Phosphatase 316 H (39-117) U/L Total Protein 8.2 H (6.5-8.0) g/dL Albumin (3.5-5.0) g/dL Lipase > 3000 H (8-78) U/L 08/30/22 Range/Units 06:01 RBC (4.20-5.50) X10*6/uL Hgb (12.0-16.0) g/dl Hct (37.0-47.0) % Neut % (Auto) (45-73) % Lymph % (Auto) (20-40) % Abs Immat Gran (auto) (0.00-0.03) X10*3/uL Absolute Neuts (auto) (2.0-8.3) x10*3/uL Anion Gap (12-20) BUN (9-16) mg/dL Total Bilirubin 1.4 H (0.0-1.0) mg/dL Direct Bilirubin (0.0-0.5) mg/dL AST 78 H (5-31) U/L ALT 95 H (0-31) U/L Alkaline Phosphatase 200 H (39-117) U/L Total Protein 5.8 L (6.5-8.0) g/dL Albumin 3.1 L (3.5-5.0) g/dL Lipase 627 H (8-78) U/L Short CBC 08/29/22 08/30/22 Range/Units 09:07 06:01 WBC 10.4 6.0 (4.8-10.8) X10*3/uL Hgb 13.1 10.8 L (12.0-16.0) g/dl Hct 39.3 31.7 L (37.0-47.0) % Plt Count 249 200 (160-400) X10*3/uL BMP 08/29/22 08/30/22 09:07 06:01 Sodium 140 140 Potassium 5.0 3.9 D Chloride 106 108 Carbon Dioxide 28 24 BUN 17 H 16 Creatinine 0.94 0.78 Calcium 10.1 8.8 D Liver Function 08/29/22 08/30/22 Range/Units 09:07 06:01 Total Bilirubin 2.9 H 1.4 H (0.0-1.0) mg/dL Direct Bilirubin 1.7 H (0.0-0.5) mg/dL AST 235 H 78 H (5-31) U/L ALT 179 H 95 H (0-31) U/L Alkaline Phosphatase 316 H 200 H (39-117) U/L Albumin 4.4 3.1 L (3.5-5.0) g/dL Urine 08/29/22 Range/Units 09:07 Urine Color Yellow Urine Appearance Clear Urine pH 7.0 (5.0-9.0) Ur Specific [place] <= 1.005 (1.005-1.025) Urine Protein Negative (Neg-Trace) mg/dL Urine Glucose (UA) Negative (Negative) mg/dL All other labs normal. Assessment and Plan (1) Acute gallstone pancreatitis: Status: Acute Plan 77-year-old female patient presenting with complaints of abdominal pain in the right upper quadrant and epigastrium radiating into the back with laboratory and CT findings suggestive of gallstone pancreatitis. As the laboratories have improved dramatically over the past 24 hours, indicating a passed gallstone, no MRCP is required at this time. I recommended a laparoscopic or possible open cholecystectomy once the pancreatitis has resolved. This certainly be performed on an elective basis as an outpatient. Recommend starting clear liquid diet today advance as tolerated. Patient is eager to be discharged home; if she is discharged to home she should follow up in our office early next week. Time Spent With Patient Time: Total time managing care of this patient today ____ minutes. Procedures Date of Service Date of Service: 08/30/22
[2022-08-30] MEDS: atenoloL 100 MG TABLET PO (09:10)
[2022-08-30] MEDS: Cholecalciferol (Vitamin D3) 25 MCG TABLET PO (09:13)
--- NOTE | 2022-08-30 10:19 | P.PNIM_ITS ---
Subjective Subjective Date of Service: 08/30/22 Interval History: much improved, hungry Physical Exam Vital Signs: Vital Signs: Last Vital Signs Temp 97.8 F 08/30/22 07:50 Pulse 78 08/30/22 07:50 Resp 18 08/30/22 07:50 BP 139/70 08/30/22 07:50 Pulse Ox 96 08/30/22 07:50 O2 Del Method Room Air 08/30/22 07:50 BMI result Body Mass Index 25.2 General: AO X 3, no acute distress Resp: CTA bilateral, no accessory muscles used CVS: S1,S2,RRR GI: soft, non tender, non distended Neuro: motor grossly intact, alert Psych: appropriate affect, appropriate insight Objective Data Active Medications Acetaminophen (Acetaminophen 325 Mg Tablet) 650 mg PO Q6H PRN PRN Reason: Pain, Mild (Pain Scale 1-3) Atenolol (Atenolol 100 Mg Tablet) 100 mg PO DAILY [facility]; Protocol Last Admin: 08/30/22 09:10 Dose: 100 mg Documented By: BEBE Docusate Sodium (Docusate Sodium 100 Mg Capsule) 100 mg PO DAILY PRN PRN Reason: Constipation Heparin Sodium (Porcine) (Heparin Sodium,Porcine 5,000 Unit/Ml Vial) 5,000 unit SUBCUT Q12H [facility] Last Admin: 08/30/22 06:11 Dose: 5,000 unit Documented By: ARNAUD Lactated Ringer's (Lr) 1,000 mls @ 150 mls/hr IVCONT .Q6H40M [facility] Last Admin: 08/30/22 08:03 Dose: 150 mls/hr Documented By: BEBE Morphine Sulfate (Morphine Sulfate 4 Mg/Ml Cartridge) 2 mg IVPUSH Q4H PRN; Protocol PRN Reason: Pain, Severe (Pain Scale 7-10) Ondansetron HCl (Ondansetron Hcl 4 Mg/2 Ml Vial) 4 mg IVPUSH Q8H PRN PRN Reason: Nausea and Vomiting Oxycodone HCl (Oxycodone Hcl Immed Release 5 Mg Tablet) 5 mg PO Q6H PRN PRN Reason: Pain, Moderate(Pain Scale 4-6) Pharmacy Consult (Consult Rx Perform Med Rec) 1 each MISCELLANE ONCE PRN PRN Reason: Consult order Sodium Chloride (0.9 % Sodium Chloride Flush 3 Ml Syringe) 3 ml IVFLUSH QSHIFT [facility] Last Admin: 08/30/22 08:01 Dose: Not Given Documented By: BEBE Non-Admin Reason: IV Running Vitamin D (Cholecalciferol (Vitamin D3) 25 Mcg Tablet) 25 mcg PO DAILY [facility] Last Admin: 08/30/22 09:13 Dose: 25 mcg Documented By: BEBE Labs 08/30/22 06:01 08/30/22 06:01 Labs: Laboratory Results - last 24 hr 08/29/22 08/30/22 08/30/22 09:07 06:01 06:01 MCV 92.4 MCH 31.5 MCHC 34.1 RDW 14.4 Plt Count 200 MPV 11.0 Immature Gran % (Auto) 0.3 Neut % (Auto) 57.6 Lymph % (Auto) 33.7 [facility] % (Auto) 6.5 Eos % (Auto) 1.7 Baso % (Auto) 0.2 Lymph # (Auto) 2.0 [facility] # (Auto) 0.4 Eos # (Auto) 0.1 Baso # (Auto) 0.0 Abs Immat Gran (auto) 0.02 Absolute Neuts (auto) 3.5 Absolute Nucleated RBC 0.000 Nucleated RBC % (auto) 0.0 Anion Gap 12 Estim Creat Clear Calc 49.6 Estimated GFR > 60 Random Glucose 69 Calcium 8.8 D Total Bilirubin 1.4 H Direct Bilirubin 1.7 H AST 78 H ALT 95 H Alkaline Phosphatase 200 H Total Protein 5.8 L Albumin 3.1 L Lipase > 3000 H 627 H Assessment and Plan (1) Acute gallstone pancreatitis: Status: Acute Plan 77F PMH hypertension presented with abdominal pain Acute gallstone pancreatitis Abdominal pain resolved, LFTs improving Likely passed stone, Will cancel MRCP for now, advance diet to clears and advance further if tolerating Close follow-up outpatient for cholecystectomy Monitor LFTs Hypertension Continue atenolol Will hold losartan/HCTZ while aggressively hydrating DVT prophylaxis- heparin Full code reason for continued hospitalization:awaiting solid tolerance Time Spent With Patient Time: Total time managing care of this patient today ____ minutes. Quality Stroke Does the patient have a stroke diagnosis?: No VTE Prior VTE?: No VTE Risk Level:: Medical - moderate - high VTE Device Contraindication: Treatment Not Indicated VTE Drug Contraindication: N/A - Med Ordered
--- NOTE | 2022-08-30 13:48 | MHC.CM.PN ---
IMM 08/30/22 Female 77 DX Gallstone Pancreatitis Patient lives alone. She is independent with all functional mobility. She travel via bus. Patient reports that she took 2 buses to get to [facility]. She declined the offer to complete a HCP. . DP home self care. Patients son will provide transport home.
[2022-08-30] MEDS: Acetaminophen 325 MG TABLET 650 MG PO (14:14)
[2022-08-30 16:00] VITALS: BP 144/67; PULSE 64; RESP 20; TEMP 36.7; O2SAT 94
--- NOTE | 2022-08-30 17:47 | PC.NURSE ---
Assumed care at 1500, patient alert and oriented, Slovak language limited, communicated with in Chinese. Patient reported she is eager to try solid foods. She says she tolerated lunch well. No abdominal pain. Only headache and a gassy sensation in the belly. Also she reported continued headache pain across forehead after tylenol; she still has oxycodone available PRN, but was asking for something more specific for headache. Discussed with MD, and new order for regular diet. Patient also auscultated to have fine crackles in LLL posteriorly to auscultation, discussed with MD and new order to discontinue IVF. Patient now slowly eating dinner. Regular diet was ordered with soft texture (Chopped/Advanced NDD3) only per patient preference, as she reports recent history of dental implants and some related difficulty chewing.
[2022-08-30] MEDS: 0.9 % Sodium Chloride Flush 3 ML SYRINGE IVFLUSH (19:04)
[2022-08-30 19:28] VITALS: BP 153/70; PULSE 72; RESP 16; TEMP 36.8; O2SAT 96
[2022-08-31 03:40] VITALS: BP 115/63; PULSE 71; RESP 16; TEMP 36.7; O2SAT 94
[2022-08-31] MEDS: Heparin Sodium,Porcine 5,000 UNIT/ML VIAL 5000 UNIT SUBCUT (06:12)
[2022-08-31 06:14] LABS: Hematocrit 31.2 % (37.0-47.0); Hemoglobin 10.7 g/dl (12.0-16.0); Mean Corpuscular HGB Conc 34.3 g/dl (31.0-35.0); Mean Corpuscular Hemoglobin 31.5 pg (27.0-33.0); Mean Corpuscular Volume 91.8 fL (80.0-98.0); Mean Platelet Volume 10.5 fL (9.4-12.3); Platelet Count 192 X10*3/uL (160-400); Red Cell Distribution Width 14.1 % (11.0-16.0)
[2022-08-31 06:31] LABS: Alanine Aminotransferase 67 U/L (0-31); Albumin Level 3.2 g/dL (3.5-5.0); Alkaline Phosphatase 174 U/L (39-117); Anion Gap 11 (12-20); Aspartate Amino Transferase 40 U/L (5-31); Bilirubin Direct 0.4 mg/dL (0.0-0.5); Blood Urea Nitrogen 14 mg/dL (9-16); Calcium 8.8 mg/dL (8.4-10.2); Carbon Dioxide 27 mmol/L (22-29); Chloride 107 mmol/L (96-108); Estimated Glomerular Filt Rate > 60; Glucose Fasting 90 mg/dL (60-99); Sodium 141 mmol/L (135-145); Total Protein 5.9 g/dL (6.5-8.0)
[2022-08-31 07:38] VITALS: BP 149/73; PULSE 68; RESP 16; TEMP 36.9; O2SAT 98
--- NOTE | 2022-08-31 07:40 | P.PNGS_ITS ---
Subjective Subjective Date of Service: 08/31/22 Interval history: Patient denies abdominal pain. She tolerated liquid diet without increased abdominal pain, nausea or vomiting. Physical Exam Vital Signs: Vital Signs: Last Vital Signs Temp 98.1 F 08/31/22 03:40 Pulse 71 08/31/22 03:40 Resp 16 08/31/22 03:40 BP 115/63 08/31/22 03:40 Pulse Ox 94 08/31/22 03:40 O2 Del Method Room Air 08/31/22 03:40 BMI result Body Mass Index 25.2 Const: General: cooperative and no acute distress Nutritional Appearance: well nourished Orientation/consciousness: patient oriented x3 Limitations: no limitations HEENT: Head: Yes normocephalic and Yes atraumatic Ears: hearing grossly normal bilaterally Resp: Effort & Inspection: normal respiratory effort, no audible wheezes, no cough and no respiratory distress Cardio: Jugular venous distension: no JVD GI: Inspection: Yes normal to inspection Palpation (GI): Soft to palpation, nontender, no guarding and not rigid Percussion: Yes normal to percussion Auscultation: normal bowel sounds Rectal Exam - Female: deferred Skin: Other: Warm, dry, no rash, no jaundice Neuro: General: patient oriented x3 Extrem: General: Yes no clubbing, cyanosis or edema Objective Data Active Medications Acetaminophen (Acetaminophen 325 Mg Tablet) 650 mg PO Q6H PRN PRN Reason: Pain, Mild (Pain Scale 1-3) Last Admin: 08/30/22 14:14 Dose: 650 mg Documented By: BEBE Atenolol (Atenolol 100 Mg Tablet) 100 mg PO DAILY [facility]; Protocol Last Admin: 08/30/22 09:10 Dose: 100 mg Documented By: BEBE Docusate Sodium (Docusate Sodium 100 Mg Capsule) 100 mg PO DAILY PRN PRN Reason: Constipation Heparin Sodium (Porcine) (Heparin Sodium,Porcine 5,000 Unit/Ml Vial) 5,000 unit SUBCUT Q12H [facility] Last Admin: 08/31/22 06:12 Dose: 5,000 unit Documented By: CASTILDean Morphine Sulfate (Morphine Sulfate 4 Mg/Ml Cartridge) 2 mg IVPUSH Q4H PRN; Protocol PRN Reason: Pain, Severe (Pain Scale 7-10) Ondansetron HCl (Ondansetron Hcl 4 Mg/2 Ml Vial) 4 mg IVPUSH Q8H PRN PRN Reason: Nausea and Vomiting Oxycodone HCl (Oxycodone Hcl Immed Release 5 Mg Tablet) 5 mg PO Q6H PRN PRN Reason: Pain, Moderate(Pain Scale 4-6) Pharmacy Consult (Consult Rx Perform Med Rec) 1 each MISCELLANE ONCE PRN PRN Reason: Consult order Sodium Chloride (0.9 % Sodium Chloride Flush 3 Ml Syringe) 3 ml IVFLUSH QSHIFT [facility] Last Admin: 08/30/22 19:04 Dose: 3 ml Documented By: ARNAUD Vitamin D (Cholecalciferol (Vitamin D3) 25 Mcg Tablet) 25 mcg PO DAILY [facility] Last Admin: 08/30/22 09:13 Dose: 25 mcg Documented By: BEBE Labs 08/31/22 05:39 08/31/22 05:39 Labs: Laboratory Results - last 24 hr 08/31/22 08/31/22 05:39 05:39 MCV 91.8 MCH 31.5 MCHC 34.3 RDW 14.1 Plt Count 192 MPV 10.5 Absolute Nucleated RBC 0.000 Nucleated RBC % (auto) 0.0 Anion Gap 11 L Estim Creat Clear Calc 49.0 Estimated GFR > 60 Fasting Glucose 90 Calcium 8.8 Total Bilirubin 1.0 Direct Bilirubin 0.4 AST 40 H ALT 67 H Alkaline Phosphatase 174 H Total Protein 5.9 L Albumin 3.2 L Procedures Date of Service Date of Service: 08/31/22 Progress Note: A&P Assessment and plan (1) Acute gallstone pancreatitis: Status: Acute Plan Patient is symptomatic clean much improved and her chemistries are normalizing. Bilirubin is now normal suggestive of a passed gallstone. Advance diet as tolerated, low-fat. Suggested patient follow-up in office early next week to arrange elective outpatient cholecystectomy if discharged. Patient expressed understanding and agrees with the plan. Time Spent With Patient Time: Total time managing care of this patient today ____ minutes. Quality Stroke Does the patient have a stroke diagnosis?: No VTE Prior VTE?: No VTE Risk Level:: Medical - moderate - high VTE Device Contraindication: Treatment Not Indicated VTE Drug Contraindication: N/A - Med Ordered
[2022-08-31] MEDS: atenoloL 100 MG TABLET PO (08:28)
[2022-08-31] MEDS: Cholecalciferol (Vitamin D3) 25 MCG TABLET PO (08:29)
[2022-08-31] MEDS: 0.9 % Sodium Chloride Flush 3 ML SYRINGE IVFLUSH (08:29)
--- NOTE | 2022-08-31 08:57 | P.DS_ITS ---
DS: Providers Provider Date of Service: 08/31/22 Date of admission: 08/29/22 18:47 Primary care physician: Taya Aiken MD Consults: 08/29/22 18:05 Consult to General Surgery Stat Consulting Provider: [facility] General Surgeons Reason for consultation: Gallstone pancreatitis Has provider been notified: Yes 08/29/22 18:10 Consult to Nephrology Stat Consulting Provider: Kevin Stokes Reason for consultation: End-stage renal disease his, dialyzed M, W, F missed Wed being admitted Has provider been notified: Yes 08/29/22 18:52 Consult to General Surgery Routine Consulting Provider: [facility] General Surgeons Reason for consultation: gallstone pancreatitis Has provider been notified: Yes DS: Diagnosis Discharge Diagnosis (1) Acute gallstone pancreatitis: Status: Acute DS: Summary Hospital Course Hospital Course: from initial hpi: 7-year-old female with history hypertension presents to the ED accompanied by her [id number] for evaluation of abdominal pain that has been ongoing for 2 weeks.? She states that she has had pain across the upper abdomen radiating to the back bilaterally that has been intermittent and waxes and wanes in severity.? Primarily brought on by eating but states also occurs spontaneously at night at times.? She states she has been trying to push through the pain but it has become so severe that she has not been eating or drinking as much.? Den ies any associated nausea or vomiting.? No fevers, chills, diarrhea, constipation, melena, hematochezia, urinary symptoms.? On arrival, mildly hypertensive at 151/55.? No leukocytosis.? Renal function baseline, electrolyte levels normal.? Total bilirubin 2.9, direct bilirubin 1.7, AST 235, ALT 179, alkaline phosphatase 316.? Troponin below detectable limits.? Lipase >3000.? CT abdomen/pelvis showed extensive colonic diverticular changes with 1 area in the mid descending colon with some adjacent inflammatory change in the anterior parental fascia and lateral conal fascia with differential to include diverticulitis, pancreatitis of the pancreatic tail.? There is also a hydropic gallbladder with cholelithiasis but no evidence of acute cholecystitis.? Given clinical picture and lab findings, patient will be admitted for further management of gallstone pancreatitis.? She does report some alcohol consumption several days a week.? No cigarette smoking or illicit drug use.? In the ED, has received IV LR, ketorolac.? Karlee did discuss case with general surgery who does not recommend cholecystectomy at this time but will plan for MRCP in the morning and will follow along with patient while admitted. hospital course: patient was admitted for acute gallstone pancreatitis, was treatedd with ivf, bowel rest, pain meds. stone passed spontaneously. tolerated solid diet. was seen by surgery who recommended outpatient follow up for cholecystectomy. for htn was continued on atenolol, held losartan/hctz, can restart on discharge. Time Spent with Patient Time attestation: Total time managing care of this patient today ____ minutes. Discharge coordination time: Greater than 30 minutes Quality: Safe Use of Opioids Does Pt have an Active Cancer Diagnosis on the Problem List?: No Quality: Stroke Does the patient have a stroke diagnosis?: No Physical Exam Vital Signs: Vital Signs: Last Vital Signs Temp 98.5 F 08/31/22 07:38 Pulse 68 08/31/22 07:38 Resp 16 08/31/22 07:38 BP 149/73 H 08/31/22 07:38 Pulse Ox 98 08/31/22 07:38 O2 Del Method Room Air 08/31/22 07:38 BMI result Body Mass Index 25.2 General: AO X 3, no acute distress Resp: CTA bilateral, no accessory muscles used CVS: S1,S2,RRR GI: soft, non tender, non distended Neuro: motor grossly intact, alert Psych: appropriate affect, appropriate insight DS: Data Data Completed and Pending Labs on day of discharge: Laboratory Results - last 24 hr 08/31/22 08/31/22 05:39 05:39 WBC 6.0 RBC 3.40 L Hgb 10.7 L Hct 31.2 L MCV 91.8 MCH 31.5 MCHC 34.3 RDW 14.1 Plt Count 192 MPV 10.5 Absolute Nucleated RBC 0.000 Nucleated RBC % (auto) 0.0 Sodium 141 Potassium 4.0 Chloride 107 Carbon Dioxide 27 Anion Gap 11 L BUN 14 Creatinine 0.79 Estim Creat Clear Calc 49.0 Estimated GFR > 60 Fasting Glucose 90 Calcium 8.8 Total Bilirubin 1.0 Direct Bilirubin 0.4 AST 40 H ALT 67 H Alkaline Phosphatase 174 H Total Protein 5.9 L Albumin 3.2 L Discharge Plan Discharge Anticipated Discharge Date/Time: 08/31/22 08:56 Patient Disposition: Home, Self-Care Discharge Diagnosis: gallstone pancreatitis Referrals: Dino Robledo MD [Physician] - 1 Week Taya Aiken MD [Primary Care Provider] - 1 Week Discharge Medications: Continued losartan-hydrochlorothiazide 50-12.5 mg tablet 1 tab PO DAILY atenolol 100 mg tablet 100 mg PO DAILY cholecalciferol (vitamin D3) [Vitamin D3] 25 mcg (1,000 unit) capsule 25 mcg PO DAILY loratadine 10 mg tablet 10 mg PO DAILY PRN (Reason: Allergy Symptoms) Discharge Orders: Discharge Order (Routine); Ordered 08/31/22 Ordered By: Dayday Navarrete Diet: Advance to usual diet Activity on Discharge: As tolerated Stand Alone Forms: Patient Portal Discharge page Care Plan Goals: prevent further episodes Health Concerns: gallstones Plan of Treatment: follow up with surgery for gallbladder removal Assessment: see above
--- NOTE | 2022-08-31 09:11 | MHC.CM.PN ---
IMM 08/30/22 Female DX Gallstone Pancreatits Patient is discharged to home self care. Her son will provide transportation home. Patient will follow up with surgery; which is planned 2weeks from discharge.
== END 2022-08-31 10:34 | disposition home or self-care (01) | DRG 440 ==
LOC: HO.ED 17:44 → HO.EDOVER 18:56 → HO.S3 19:26
PROVIDERS: Physician Assistant Medical; Admitting Provider Physician Assistant; Emergency Provider Emergency Medicine Emergency Medical Services; PCP Family Medicine; Visit Provider Internal Medicine
DX: K85.10 Biliary acute pancreatitis without necrosis or infection (principal); F32.A Depression, unspecified; E78.00 Pure hypercholesterolemia, unspecified; I10 Essential (primary) hypertension; Z79.899 Other long term (current) drug therapy
CPT/HCPCS: 36415; 74177; 80048; 80053; 80076; 81003; 82248; 83690; 83735; 84484; 85025; 85027; 85610; 85730; 93005; 99221; 99285; J1643; J1885; Q9967

== ENCOUNTER 2022-09-24 08:51 | Day surgery (SDC) | payer OTHER, MEDICAID, SELFPAY ==
--- NOTE | 2022-09-21 09:17 | P.CONAN_ITS ---
Documented by User: Delilah Romo NP 09/21/22 09:17 HPI - Anesthesia Eval Consult details Narrative: 77yo F for Cholecystectomy Laparoscopic,poss open PMFSH Active Problems Active Problems: All Active Problems (Updated 08/29/22 @ 17:44 by Varun Jimenez MD) Colon cancer screening (Acute) HTN (hypertension), benign (Acute) Tubular adenoma of colon (Acute) Acute gallstone pancreatitis (Acute) Past Medical History Medical History Depression Elevated cholesterol HTN (hypertension) Family History Family history of problems with anesthesia: No Surgical History Surgical History (Updated 09/19/22 @ 15:09 by Juju Suggs, CODI) History of colonoscopy with polypectomy History of eye surgery Hx of section History of Problems with Anesthesia: No Social History Social History Housing: [facility] Patient Tobacco Use Status: Never used Tobacco service: No Current occupational status: retired [employer] Allergies Allergy/AdvReac Type Severity Reaction Status Date / Time No Known Allergies Allergy Verified 08/29/22 08:52 Home Medications Medication Instructions Recorded Confirmed Last Taken Type atenolol 100 mg tablet 100 mg PO DAILY 03/14/21 09/19/22 09/24/22 History cholecalciferol (vitamin D3) 25 25 mcg PO DAILY 03/14/21 09/19/22 08/29/22 History mcg (1,000 unit) capsule (Vitamin D3) loratadine 10 mg tablet 10 mg PO DAILY PRN Allergy Symptoms 03/14/21 09/19/22 Unknown History losartan 50 mg-hydrochlorothiazide 1 tab PO DAILY 08/29/22 09/19/22 08/29/22 History 12.5 mg tablet Exam Exam Date and Time: September 21, [id number] Pertinent Lab Results Pertinent Lab Results: Laboratory Tests 08/31/22 08/31/22 05:39 05:39 WBC 6.0 Hgb 10.7 L Hct 31.2 L Plt Count 192 Sodium 141 Potassium 4.0 Chloride 107 Carbon Dioxide 27 BUN 14 Creatinine 0.79 Narrative Narrative: Vent. Rate : 067 BPM ? ? Atrial Rate : 067 BPM ?? P-R Int : 160 ms? QRS Dur : 072 ms ? ? QT Int : 410 ms ? ? ? P-R-T Axes : 058 018 034 degrees ?? QTc Int : 433 ms ? Normal sinus rhythm Normal ECG No previous ECGs available ? Assessment and Plan Assessment Anesthesia Assessment: Chart Reviewed Final Anesthetic Review Family History of Problems with Anesthesia: No History of Problems with Anesthesia: No Documented by User: Ryan Bernstein MD 09/24/22 18:05 [facility] Past Medical History Medical History Depression Elevated cholesterol HTN (hypertension) Functional capacity: independent ambulation Surgical History Surgical History (Updated 09/19/22 @ 15:09 by Juju Suggs RN) History of colonoscopy with polypectomy History of eye surgery Hx of section Social History Social History Housing: Condominium Patient Tobacco Use Status: Never used Tobacco service: No Current occupational status: retired Meds Allergies Allergy/AdvReac Type Severity Reaction Status Date / Time No Known Allergies Allergy Verified 08/29/22 08:52 Home Medications Medication Instructions Recorded Confirmed Last Taken Type atenolol 100 mg tablet 100 mg PO DAILY 03/14/21 09/19/22 09/24/22 History cholecalciferol (vitamin D3) 25 25 mcg PO DAILY 03/14/21 09/19/22 08/29/22 History mcg (1,000 unit) capsule (Vitamin D3) loratadine 10 mg tablet 10 mg PO DAILY PRN Allergy Symptoms 03/14/21 09/19/22 Unknown History losartan 50 mg-hydrochlorothiazide 1 tab PO DAILY 08/29/22 09/19/22 08/29/22 History 12.5 mg tablet Exam Airway Mallampati Class: III TM Dist: >3cm Loose/Missing/Broken Teeth: Yes (loose implants lower) Assessment and Plan Assessment Anesthesia Assessment: Anesthesia Plan Discussed Final Anesthetic Review NPO: Yes ASA Class: II Final Preanesthetic Review: Meds/Allgs Chart Reviewed, Consent Obtained/Reviewed and Anes Risks/Benef Reviewed Patient Risk: Intermediate Procedure Risk: Intermediate Anesthetic Plan Anesthetic Plan: GA Disposition: Standard PACU
[2022-09-24] VITALS (8 sets, daily range): BP systolic 136–149; BP diastolic 63–84; PULSE 60–75; RESP 16–18; TEMP 36.3–36.7; O2SAT 94–98; BMI 23.8
[2022-09-24] MEDS: Lactated Ringers 1,000 ML 100 ML IVCONT (10:59)
--- NOTE | 2022-09-24 11:17 | MHC.SHP ---
Pre-Procedural Eval Section A Date of Service: 09/24/22 The patient is an INPATIENT: No Changes since office visit: Yes Patient answered all questions; No Cold of Flu in the past 2 weeks, No New Medical Problems and No Changes in Medication The History & Physical has been completed within 30 days and I have reviewed it.: Yes Section B Chief Complaint: Biliary acute pancreatitis without necrosis or inf Allergies: Allergies Allergy/AdvReac Type Severity Reaction Status Date / Time No Known Allergies Allergy Verified 08/29/22 08:52 Plan Diagnosis/Plan: Unchanged I have reviewed the history and physical and performed a pertinent physical examination on my patient. No changes have occurred unless specified. I reviewed the procedure, risks, and alternatives in detail with the patient regarding Laparoscopic or possible open cholecystectomy. She gives her consent for the procedure. Time Spent With Patient Time: Total time managing care of this patient today ____ minutes.
--- NOTE | 2022-09-24 13:06 | P.OP_ITS ---
Operative Note Operative Note Date of Service: 09/24/22 Narrative: Preoperative diagnosis: acute gallstone pancreatitis, cholelithiasis Postoperative diagnosis: Same Procedure: Laparoscopic cholecystectomy Surgeon: Dino Robledo MD Beer Merchant: ARNALDO Joshi Anesthesia: General endotracheal Indications for procedure: 77-year-old female patient with a prior history of acute gallstone pancreatitis presenting now for elective laparoscopic cholecystectomy. Operative findings: Mildly distended gallbladder with multiple small gallstones at the neck of the gallbladder. Specimen: gallbladder Estimated blood loss: Less than 2 mL Complications: none Procedure details: Patient was brought to the OR and placed in a supine position. After administering general anesthesia the patient's abdomen was prepped with ChloraPrep and draped in a sterile fashion. Local anesthesia consisting of 0.5% Sensorcaine with epinephrine was infiltrated in a periumbilical region. A 5 mm incision was made above the umbilicus in a transverse fashion. The Veress needle was then inserted while elevating abdominal cavity with towel clips. After positive drop test the abdomen was insufflated to a pressure of 15 mm of mercury. The Veress needle was then removed and a 5 mm trocar inserted. The camera was inserted in the abdomen explored. Several adhesions were adhesed from the anterior abdominal wall using electrocautery. A 12 mm trocar was then placed in the epigastrium. Two 5 mm trocars placed in the right upper quadrant by the marketing assistant manager. The patient was placed in reverse Trendelenburg positioning and rotated to the left. The gallbladder was grasped with the fundus and retracted cephalad by the marketing assistant manager. The infundibulum was then grasped and retracted away from the liver bed, also by the marketing assistant manager. The Dolphin dissected was then used by the surgeon to dissect the peritoneum off the infundibulum to reveal the junction with the cystic duct. Cystic artery was noted slightly medial and posterior to the cystic duct. After obtaining a critical view the cystic duct was doubly clipped and divided. The cystic artery was then doubly clipped and divided. The gallbladder was then dissected off the liver bed using electrocautery with an L hook. Hemostasis was assured all times using the electrocautery. When the gallbladder is completely dissected off the liver bed was placed in an Endo-Catch bag and brought out through the epigastric incision. The gallbladder was sent to pathology for further examination. The abdomen was then re-examined. The liver bed was irrigated and suctioned dry. No bleeding or bile leak could be identified. CO2 was then evacuated and all trocars removed. Fascia was closed at the epigastric incision using a [id number] 0 Polysorb suture. Skin was closed in all incisions using a subcuticular 4 0 Polysorb suture by both the surgeon and marketing assistant manager. Sterile dressings consisting of Steri-Strips, 2 x 2 gauze, and Tegaderm were then applied. The patient tolerated the procedure well. Sponge instrument and needle counts reported as correct. The patient was transferred to PACU in stable condition.
[2022-09-24] MEDS: oxyCODONE HCl Immed Release 5 MG TABLET PO (13:48)
== END 2022-09-24 15:24 | disposition home or self-care (01) ==
PROVIDERS: PCP Family Medicine; Visit Provider Surgery
PROC: 0FT44ZZ Resection of Gallbladder, Percutaneous Endoscopic Approach (ICD-10-PCS; CPT 47562; principal; 2022-09-24 11:20)
DX: K80.10 Calculus of gallbladder with chronic cholecystitis without obstruction (principal); I10 Essential (primary) hypertension; E78.00 Pure hypercholesterolemia, unspecified; F32.A Depression, unspecified; Z79.899 Other long term (current) drug therapy
CPT/HCPCS: 47562; 88304; J1100; J2250; J2405; J3010

== ENCOUNTER → 2022-10-02 11:11 | Outpatient (BNVA) | payer OTHER, SELFPAY | PROVIDERS: PCP Family Medicine; Visit Provider Surgery | DX: K85.10 Biliary acute pancreatitis without necrosis or infection (principal); Z90.49 Acquired absence of other specified parts of digestive tract | CPT/HCPCS: 99212 ==